=== PATIENT | female | born 1985 | race Caucasian/White ===

== ENCOUNTER 2018-08-26 00:12 | Emergency (ER) | payer OTHER ==
[2018-08-26 02:24] VITALS: BP 121/84
--- NOTE | 2018-08-26 02:25 | ED ---
Throat Pain/Nasal Congestion - HPI Summary HPI Summary: This patient is a 33 year old F presenting to ED with a chief complaint of a sore throat since 9230-6522 last night. The CC is described as white spots at the back of my throat. The patient rates the pain 6/10 in severity. Symptoms aggravated by nothing. Symptoms alleviated by nothing. Patient reports nasal congestion. Patient denies fever. - History of Current Complaint Chief Complaint: EDThroatPain Time Seen by Provider: 08/26/18 02:14 Hx Obtained From: Patient Onset/Duration: Sudden Onset Severity: Moderate - 6/10 - Allergies/Home Medications Allergies/Adverse Reactions: Allergies Allergy/AdvReac Type Severity Reaction Status Date / Time MS Erythromycin Allergy Mild Hives Verified 08/26/18 00:15 [Erythromycin] MS Frovatriptan [From Frova] Allergy Mild Rash Verified 08/26/18 00:15 MS Sumatriptan [From Imitrex] Allergy Mild Rash Verified 08/26/18 00:15 MS Topiramate [From Topamax] AdvReac Dizziness Verified 08/26/18 00:15 Home Medications: Home Medications Buprenorp/Nalox 8-2 MG FILM [Suboxone 8 mg-2 mg Sl Film] 1 each SL TID 08/26/18 [History Confirmed 08/26/18] Cyclobenzaprine TAB* [Flexeril 10 MG TAB*] 10 mg PO DAILY PRN 08/26/18 [History Confirmed 08/26/18] Gabapentin 800 mg PO QID 08/26/18 [History Confirmed 08/26/18] Loratadine [Claritin 10 MG CAP] 10 mg PO DAILY 08/26/18 [History Confirmed 08/26] PMH/Surg Hx/FS Hx/Imm Hx Endocrine/Hematology History: Denies: Hx Diabetes, Hx Thyroid Disease Cardiovascular History: Denies: Hx Hypertension Respiratory History: Reports: Hx Asthma Denies: Hx Chronic Obstructive Pulmonary Disease (COPD) GI History: Denies: Hx Ulcer Neurological History: Reports: Hx Migraine - Cancer History Cancer Type, Location and Year: --states was in rehab 11/2012 and had elevated LFT's and was told she needed to be tested for Hepatitis--pt has not had done yet; does not have PCP, patient was tested and states she has antibodies but does not have liver involvement. - Surgical History Surgery Procedure, Year, and Place: tubes in ears. 3 c-sections gallbladder,. tubal ligation with clips 2010. hole in ear drum patched x2 Infectious Disease History: No Infectious Disease History: Reports: Hx Hepatitis - HEP C Denies: Hx Human Immunodeficiency Virus (HIV), History Other Infectious Disease, Traveled Outside the [place] in Last 30 Days - Family History Known Family History: Positive: Hypertension - Social History Alcohol Use: None Hx Substance Use: No Substance Use Type: Reports: None Substance Use Comment - Amount & Last Used: "once every 6 months" Hx Tobacco Use: Yes Smoking Status (MU): Heavy Every Day Tobacco Smoker Type: Cigarettes Amount Used/How Often: 1 ppd Length of Time of Smoking/Using Tobacco: 16 years Have You Smoked in the Last Year: Yes Review of Systems Negative: Fever Positive: Sore Throat - "white spots at the back of my throat", Other - nasal congestion All Other Systems Reviewed And Are Negative: Yes Physical Exam - Summary Physical Exam Summary: Appearance: Well-appearing, Well-nourished, lying in bed comfortably Skin: Warm, dry, no obvious rash Eyes: sclera anicteric, no conjunctival pallor ENT: mucous membranes moist, Scattered vesicles in the oropharynx Neck: Supple, nontender Respiratory: Clear to auscultation, no signs of respiratory distress Cardiovascular: Normal S1, S2. No murmurs. Normal distal pulses in tibial and radial bilaterally. Abdomen: Soft, nontender, normal active bowel sounds present Musculoskeletal: Normal, Strength/ROM Intact Neurological: A&Ox3, awake and alert, mentation is normal, speech is fluent and appropriate Psychiatric: affect is normal, does not appear anxious or depressed Triage Information Reviewed: Yes Vital Signs On Initial Exam: Initial Vitals Temp Pulse Resp BP Pulse Ox 98.3 F 104 18 114/79 100 08/26/18 00:12 08/26/18 00:12 08/26/18 00:12 08/26/18 00:12 08/26/18 00:12 Vital Signs Reviewed: Yes Diagnostics - Vital Signs Vital Signs Temp Pulse Resp BP Pulse Ox 08/26/18 00:12 98.3 F 104 18 114/79 100 - Laboratory Lab Results: Lab Results 08/26/18 Range/Units 01:34 Group A Strep Rapid Negative (Negative) Lab Statement: Any lab studies that have been ordered have been reviewed, and results considered in the medical decision making process. EENT Course/Dx - Course Assessment/Plan: This patient is a 33 year old F presenting to ED with a chief complaint of a sore throat since [id number] last night. Negative for strep. This patient will be discharged with viral pharyngitis. Patient understands and agrees with this plan. - Differential Diagnoses Differential Diagnoses: Other - viral pharyngitis - Diagnoses Provider Diagnoses: Viral pharyngitis Discharge - Sign-Out/Discharge Documenting (check all that apply): Patient Departure - discharge Patient Received Moderate/Deep Sedation with Procedure: No - Discharge Plan Condition: Good Disposition: HOME Prescriptions: Magic Mouth Was-CRISPIN/MAAL/LIDO* 5 ml SWISH SWAL QID PRN #60 ml PRN Reason: Sore Throat Patient Education Materials: Pharyngitis (ED) Forms: *Work Release Referrals: Kristin Pascal MD [Primary Care Provider] - - Attestation Statements Document Initiated by Scribe: Yes Documenting Scribe: Chivo Francis Provider For Whom Scribe is Documenting (Include Credential): Isma aTveras MD Scribe Attestation: Chivo Gallegos, scribed for Isma Taveras MD on 08/26/18 at 0227. Status of Scribe Document: Ready
== END 2018-08-26 02:23 | disposition home or self-care (01) ==
LOC: ED 00:12
DX: J02.9 Acute pharyngitis, unspecified (principal); J45.909 Unspecified asthma, uncomplicated; F17.210 Nicotine dependence, cigarettes, uncomplicated; B19.20 Unspecified viral hepatitis C without hepatic coma
CPT/HCPCS: 87651; 99282